=== PATIENT | female | born 1990 | race Caucasian/White ===

== ENCOUNTER 2018-03-23 02:15 | Emergency (ER) | payer OTHER ==
[~2018-03-23] VITALS: Ht 170.2 cm; Wt 66.7 kg
--- NOTE | 2018-03-23 02:35 | ED GI/GU/ABDOMINAL COMPLAINT ---
History of Present Illness General Chief Complaint: Abdominal Pain/Flank Pain Stated Complaint: "ABD PAIN, 3 MONTHS PREG" Source: patient Exam Limitations: no limitations Vital Signs & Intake/Output Vital Signs & Intake/Output Vital Signs Date Time Temp Pulse Resp B/P B/P Pulse O2 O2 Flow FiO2 Mean Ox Delivery Rate 03/23 552 97.7 80 18 108/63 03/23 0225 98.2 83 16 104/67 98 Room Air Allergies Coded Allergies: No Known Allergies (03/23/18) Reconcile Medications Ibuprofen 800 MG TABLET 1 TAB PO TID PRN pain Oxycodone HCl/Acetaminophen (Percocet 5-325 MG Tablet) 5 MG-325 MG TABLET 1 TAB PO 4XDP PRN PAIN TEN...[id number] Triage Note: 27YO FEMALE TO TRIAGE W/CO ABD PAIN TONITE. PT STATES "SHE IS 3MOS PREG AND SCHEDULED FOR D&C ON SUN DUE TO NO HEARTBEAT" DENIES ANY VAG BLEEDING Triage Nurses Notes Reviewed? yes ? Y Is pt currently ? No Onset: Abrupt Duration: hour(s): Timing: recent history Location: suprapubic Radiation: no radiation Modifying Factors: Worsens With: palpation. Associated Symptoms: abdominal pain HPI: 27 YO woman 3 months gestation with documented demise by dr. okeefe, presents with lower abdominal pain, no bleeding, that began this evening. She shares that she is scheduled for a D+C in [address] okeefe. LMP 12/23/17. She notes no fever, chills, vaginal bleeding, discharge, dysuria. She is otherwise well. Past History Travel History Traveled to [place] past 21 day No Medical History Any Pertinent Medical History? see below for history Neurological: NONE EENT: NONE Cardiovascular: NONE Respiratory: NONE Gastrointestinal: NONE Hepatic: NONE Renal: NONE Musculoskeletal: NONE Psychiatric: NONE Endocrine: NONE Blood Disorders: NONE Cancer(s): NONE PROFESSOR IN FAMILY STUDIES/Reproductive: NONE Surgical History Surgical History: none Psychosocial History What is your primary language Stateless Tobacco Use: Never used Family History Hx Contributory? No Review of Systems Review of Systems Constitutional: Reports: no symptoms. EENTM: Reports: no symptoms. Respiratory: Reports: no symptoms. Cardiovascular: Reports: no symptoms. GI: Reports: no symptoms. Genitourinary: Reports: no symptoms. Musculoskeletal: Reports: no symptoms. Skin: Reports: no symptoms. Neurological/Psychological: Reports: no symptoms. Hematologic/Endocrine: Reports: no symptoms. Immunologic/Allergic: Reports: no symptoms. All Other Systems: Reviewed and Negative Physical Exam Physical Exam General Appearance: well developed/nourished, mild distress Head: atraumatic, normal appearance Eyes: Bilateral: normal appearance. Ears, Nose, Throat, Mouth: hearing grossly normal, moist mucous membrane Neck: normal inspection, supple, full range of motion Respiratory: normal breath sounds, chest non-tender, no respiratory distress, quiet respiration, lungs clear Cardiovascular: regular rate/rhythm Gastrointestinal: normal bowel sounds, soft, mild suprapubic tenderness to palpation. no rebound. no guarding. Pelvic: dark blood with small clots in vaginal vault Back: normal inspection Extremities: normal range of motion Neurologic/Psych: no motor/sensory deficits, awake, alert, oriented x 3 Skin: intact, normal color, warm/dry Core Measures ACS in differential dx? No Sepsis Present: No Sepsis Focused Exam Completed? No Progress Differential Diagnosis: spontaneous miscarriage. Plan of Care: Orders Procedure Date/time Status TYPE & SCREEN (NOT X-MATCH) 03/23 0428 Complete Add-on Test (ER Only) 03/23 0353 Active HUMAN BETA HCG TITRE 03/23 030 Complete URINALYSIS 03/23 221 Complete LIPASE 03/23 221 Complete HEPATIC FUNCTION PANEL 03/23 221 Complete CBC WITHOUT DIFFERENTIAL 03/23 221 Complete BASIC METABOLIC PANEL 03/23 221 Complete AMYLASE 03/23 221 Complete Laboratory Tests 03/23/18 0500: Urine Color BLDY H, Urine Clarity TURBD H, Urine pH 7.5, Ur Specific [place] 1.010, Urine Protein >=300 H, Urine Ketones 15 H, Urine Nitrite POS H, Urine Bilirubin NEG, Urine Urobilinogen >=8.0 H, Ur Leukocyte Esterase LARGE H, Ur Microscopic SEDIMENT EXAMINED, Urine RBC PACKD H, Urine WBC RARE, Urine Hemoglobin LARGE H, Urine Glucose 100 H 03/23/18 0302: Anion Gap 11, Estimated GFR > 60, BUN/Creatinine Ratio 14.0, Glucose 93, Calcium 9.4, Total Bilirubin 0.5, Direct Bilirubin 0.2, AST 16, ALT 27, Alkaline Phosphatase 47, Total Protein 7.1, Albumin 4.1, Amylase 60, Lipase 66, Beta HCG, Quant 74531.0, CBC w Diff NO MAN DIFF REQ, RBC 4.43, MCV 85.2, MCH 28.4, MCHC 33.3, RDW 13.1, MPV 8.4, Gran % 63.5, Lymphocytes % 28.6, Monocytes % 5.5, Eosinophils % 2.0, Basophils % 0.4, Absolute Granulocytes 5.7, Absolute Lymphocytes 2.6, Absolute Monocytes 0.5, Absolute Eosinophils 0.2, Absolute Basophils 0 03/23/18 0234: Beta HCG, Quant Cancelled Initial ED EKG: none Departure Departure Disposition: HOME OR SELF CARE Condition: Stable Clinical Impression Primary Impression: demise Referrals: Gilbert PECK,Jax Rodriguez (PCP/Family) Departure Forms: Customer Survey General Discharge Information Prescriptions: Current Visit Scripts Ibuprofen 1 TAB PO TID PRN pain #30 TAB Oxycodone HCl/Acetaminophen (Percocet 5-325 MG Tablet) 1 TAB PO 4XDP PRN PAIN #10 TAB TEN...[id number] Comments 03/23/18, 3:08... discussed with dr. okeefe... pt is a demise.... scheduled for d+c this sunday.... 03/23/18, 3:40am... bedside u/s, no heart tone or movement visualized. 03/23/18, 4:10am.... discussed with dr. can... if patient is feeling well, not bleeding so much, without much discomfort, she may be discharged. 03/23/18, 5:09am.... pt states she went to the bathroom and passed a "clot that looked like it might be the baby"... she flushed it. she states the bleeding has mostly subsided. she is feeling well. , 6:01am... pt continues to feel well. no active bleeding, blood type 0+, no need for rhogam. pt will follow up with dr. okeefe.
[2018-03-23 03:17] LABS: ABSOLUTE BASOPHIL COUNT 0 /CUMM (0.0-0.2); ABSOLUTE EOSINOPHIL COUNT 0.2 /CUMM (0.0-0.7); ABSOLUTE GRANULOCYTE CT 5.7 /CUMM (1.4-6.5); ABSOLUTE LYMPH COUNT 2.6 /CUMM (1.2-3.4); ABSOLUTE MONOCYTE COUNT 0.5 /CUMM (0.10-0.60); BASOPHIL % 0.4 % (0.0-2.0); GRANULOCYTE % 63.5 % (42.2-75.2); HEMATOCRIT 37.7 % (37-47); MEAN CORPUSCULAR HGB 28.4 PG (27.0-31.0); MEAN CORPUSCULAR HGB CONC 33.3 G/DL (33.0-37.0); MEAN CORPUSCULAR VOLUME 85.2 FL (81.0-99.0); MEAN PLATELET VOLUME 8.4 FL (7.4-10.4); PLATELET COUNT 221 /CUMM (130-400); RBC DISTRIBUTION WIDTH 13.1 % (11.5-14.5); RED BLOOD CELL CT 4.43 /CUMM (4.20-5.40); WHITE BLOOD CELL COUNT 8.9 /CUMM (4.8-10.8)
[2018-03-23 05:52] VITALS: BP 108/63
[2018-03-23] MEDS ORDERED: IBUPROFEN800 M1 PO (05:57)
[2018-03-23] MEDS ORDERED: PERCOCET 5-3251 EACH PO (05:57)
== END 2018-03-23 06:23 ==
LOC: ERH 02:15
PROVIDERS: Pediatrics
DX: O02.1 Missed abortion (principal)
CPT/HCPCS: 81001; 96361; 96374